=== PATIENT | male | born 1960 | race Caucasian/White ===

== ENCOUNTER 2017-01-05 15:48 | Inpatient (IN) | payer MEDICAID, OTHER ==
[~2017-01-05] VITALS: Ht 182.9 cm; Wt 74.4 kg
[~2017-01-05 15:48] MED LIST: BENZ1TAB10 PO; CLOZ100 PO; DIVA500T52 PO; SERT50TA12 PO
[2017-01-05 17:00] LABS: BASOPHILS % (AUTO) 0.1 % (0.0-2.0); EOSINOPHILS % (AUTO) 0 % (1.0-6.0); HEMOGLOBIN 13.6 g/dL (13.5-17.5); LYMPHOCYTES # (AUTO) 2.5 K/uL (1.0-4.8); LYMPHOCYTES % (AUTO) 42.1 % (22.0-44.0); MEAN CORPUSCULAR HEMOGLOBIN 30.6 pg (26.0-34.0); MEAN CORPUSCULAR HGB CONC 33.2 G/dL (31.0-37.0); MEAN CORPUSCULAR VOLUME 92 fL (80-100); MONOCYTES # (AUTO) 0.4 K/uL (0.1-1.0); MONOCYTES % (AUTO) 7.1 % (2.0-9.0); NEUTROPHILS # (AUTO) 3.1 K/uL (1.8-7.7); NEUTROPHILS % (AUTO) 50.7 % (40.0-70.0); PLATELET COUNT (AUTO) 184 K/uL (150-450); RED BLOOD CELL COUNT(AUTO) 4.45 MIL/uL (4.50-5.90); RED CELL DISTRIBUTION WIDTH 12.6 % (11.5-14.5); WHITE BLOOD COUNT (AUTO) 6.1 K/uL (4.5-11.0)
[2017-01-05] MEDS ORDERED: LORazepam 2 MG/ML VIAL IM ONE (17:00)
[2017-01-05] MEDS ORDERED: HALOPERIDOL LACTATE 5 MG/ML VIAL IM ONE (17:00)
[2017-01-05 17:16] LABS: ANION GAP 7 mmol/L (8-16); CALCIUM, TOTAL 8.9 mg/dL (8.8-10.5); CARBON DIOXIDE 28 mmol/L (22-29); CHLORIDE 108 mmol/L (98-107); CREATININE 0.95 mg/dL (0.60-1.30); GLOMERULAR FILTR. RATE CALC > 60 mL/min (>60); POTASSIUM 3.9 mmol/L (3.5-5.1); SODIUM SERUM 143 mmol/L (136-145); UREA NITROGEN, BLOOD 18 mg/dL (7-18)
[2017-01-05 17:21] LABS: ALANINE AMINOTRANSFERASE 223 U/L (12-78); ALBUMIN 3.5 g/dL (3.4-5.0); ASPARTATE AMINOTRANSFERASE 157 U/L (15-37); BILIRUBIN,TOTAL 0.3 mg/dL (0.1-1.0); TOTAL PROTEIN, SERUM 8.2 g/dL (6.4-8.2)
[2017-01-05] MEDS ORDERED: TUBERCULIN, PURIFIED PROTEIN DERIVATIVE 5 TU/0.1 ML SYG ID ONE (18:00)
[2017-01-05] MEDS ORDERED: MAGNESIUM HYDROXIDE SUSPENSION 30 ML UDCUP PO PRN (18:00)
[2017-01-05] MEDS ORDERED: ZOLPIDEM TARTRATE 10 MG TABLET PO PRN (18:00)
[2017-01-05] MEDS ORDERED: LOPERAMIDE HCL 2 MG CAPSULE PO PRN (18:00)
[2017-01-05] MEDS ORDERED: OLANZapine 5 MG RAPDIS TABLET PO PRN (18:00)
[2017-01-05] MEDS ORDERED: ACETAMINOPHEN 325 MG TABLET PO PRN (18:00)
[2017-01-05] MEDS ORDERED: GuaiFENesin/D-METHORPHAN [SUGAR-FREE] 200-20MG/10 ML SYRUP UDCUP PO PRN (18:00)
[2017-01-05] MEDS ORDERED: PROMETHAZINE HCL 25 MG TABLET PO PRN (18:00)
[2017-01-05] MEDS ORDERED: HydrOXYzine PAMOATE 50 MG CAPSULE PO PRN (18:00)
[2017-01-05] MEDS ORDERED: MAG HYDROX/AL HYDROX/SIMETH ES 30 ML SUSPENSION UDCUP PO PRN (18:00)
[2017-01-05 19:54] VITALS: BP 124/62
[2017-01-05] MEDS ORDERED: INFLUENZA VIRUS VACCINE QVS 2016-17 (3YR+)/PF 60 MCG/0.5 ML SYRINGE IM ONE (20:15)
[2017-01-05] MEDS: THIAMINE HCL 100 MG TABLET PO SCH (20:29)
[2017-01-05] MEDS: CloZAPine 100 MG TABLET PO SCH (20:30)
[2017-01-05] MEDS ORDERED: DIVALPROEX SODIUM 500 MG ER TABLET PO SCH (21:00)
[2017-01-06 00:30] VITALS: BP 111/69
[2017-01-06 08:02] LABS: BASOPHILS # (AUTO) 0.01 K/uL (0.00-0.20); BASOPHILS % (AUTO) 0.2 % (0.0-2.0); EOSINOPHILS % (AUTO) 0.02 % (1.0-6.0); HEMATOCRIT 41.2 % (41-53); HEMOGLOBIN 13.7 g/dL (13.5-17.5); LYMPHOCYTES # (AUTO) 2.6 K/uL (1.0-4.8); LYMPHOCYTES % (AUTO) 46.1 % (22.0-44.0); MEAN CORPUSCULAR HEMOGLOBIN 30.7 pg (26.0-34.0); MEAN CORPUSCULAR HGB CONC 33.3 G/dL (31.0-37.0); MEAN CORPUSCULAR VOLUME 92 fL (80-100); MONOCYTES # (AUTO) 0.3 K/uL (0.1-1.0); MONOCYTES % (AUTO) 5.9 % (2.0-9.0); NEUTROPHILS # (AUTO) 2.7 K/uL (1.8-7.7); NEUTROPHILS % (AUTO) 47.8 % (40.0-70.0); PLATELET COUNT (AUTO) 197 K/uL (150-450); RED BLOOD CELL COUNT(AUTO) 4.47 MIL/uL (4.50-5.90); RED CELL DISTRIBUTION WIDTH 12.3 % (11.5-14.5); WHITE BLOOD COUNT (AUTO) 5.7 K/uL (4.5-11.0)
[2017-01-06 08:09] VITALS: BP 115/74
[2017-01-06 08:21] LABS: HEMOGLOBIN A1C 5.5 % (4.5-6.2)
[2017-01-06 08:27] LABS: ALANINE AMINOTRANSFERASE 226 U/L (12-78); ALBUMIN 3.3 g/dL (3.4-5.0); ANION GAP 9 mmol/L (8-16); ASPARTATE AMINOTRANSFERASE 164 U/L (15-37); BILIRUBIN,TOTAL 0.4 mg/dL (0.1-1.0); CALCIUM, TOTAL 8.7 mg/dL (8.8-10.5); CARBON DIOXIDE 27 mmol/L (22-29); CHLORIDE 105 mmol/L (98-107); CHOL/HDL RATIO 4.8 (4.2-7.3); CREATININE 0.91 mg/dL (0.60-1.30); GLOMERULAR FILTR. RATE CALC > 60 mL/min (>60); POTASSIUM 3.9 mmol/L (3.5-5.1); SODIUM SERUM 141 mmol/L (136-145); TOTAL PROTEIN, SERUM 7.8 g/dL (6.4-8.2); UREA NITROGEN, BLOOD 18 mg/dL (7-18); VALPROIC ACID 28 mcg/mL (50-100)
[2017-01-06] MEDS ORDERED: SERTRALINE HCL 50 MG TABLET PO SCH (09:00)
[2017-01-06] MEDS: THIAMINE HCL 100 MG TABLET PO SCH ×2 (10:05→16:12)
[2017-01-06] MEDS: FOLIC ACID 1 MG TABLET PO SCH (10:05)
[2017-01-06] MEDS: MULTIVITAMINS WITH MINERALS, THERAPEUTIC TABLET PO SCH (10:05)
[2017-01-06] MEDS: CloZAPine 100 MG TABLET PO SCH ×2 (10:05→20:34)
[2017-01-06] MEDS: LORazepam 2 MG TABLET PO PRN (11:09)
[2017-01-06] MEDS: GABAPENTIN 100 MG CAPSULE PO SCH ×3 (13:02→20:35)
[2017-01-06 18:14] VITALS: BP 104/76
[2017-01-06] MEDS: DIVALPROEX SODIUM 500 MG ER TABLET PO SCH (20:34)
[2017-01-06] MEDS ORDERED: IBUPROFEN 400 MG TABLET PO PRN (22:30)
[2017-01-07 00:10] VITALS: BP 104/60
[2017-01-07] MEDS: GABAPENTIN 100 MG CAPSULE PO SCH ×4 (08:59→21:05)
[2017-01-07] MEDS: CloZAPine 100 MG TABLET PO SCH ×2 (08:59→21:11)
[2017-01-07] MEDS: FOLIC ACID 1 MG TABLET PO SCH (08:59)
[2017-01-07] MEDS: SERTRALINE HCL 100 MG TABLET PO SCH (08:59)
[2017-01-07] MEDS: THIAMINE HCL 100 MG TABLET PO SCH ×2 (08:59→16:52)
[2017-01-07] MEDS: MULTIVITAMINS WITH MINERALS, THERAPEUTIC TABLET PO SCH (08:59)
[2017-01-07 11:12] VITALS: BP 134/93
[2017-01-07] MEDS: LORazepam 2 MG TABLET PO PRN (11:19)
[2017-01-07 16:10] VITALS: BP 114/71
[2017-01-07] MEDS: DIVALPROEX SODIUM 500 MG ER TABLET PO SCH (21:11)
[2017-01-08 06:17] VITALS: BP 105/60
[2017-01-08] MEDS: FOLIC ACID 1 MG TABLET PO SCH (09:20)
[2017-01-08] MEDS: THIAMINE HCL 100 MG TABLET PO SCH ×2 (09:20→16:22)
[2017-01-08] MEDS: CloZAPine 100 MG TABLET PO SCH ×2 (09:20→20:57)
[2017-01-08] MEDS: MULTIVITAMINS WITH MINERALS, THERAPEUTIC TABLET PO SCH (09:20)
[2017-01-08] MEDS: SERTRALINE HCL 100 MG TABLET PO SCH (09:20)
[2017-01-08] MEDS: GABAPENTIN 100 MG CAPSULE PO SCH (09:50)
[2017-01-08 11:11] LABS: CLOZAPINE 621 ng/mL (350-650); CLOZAPINE & NORCLOZAPINE 1186 ng/mL; NORCLOZAPINE 565 ng/mL (Not Estab.)
[2017-01-08] MEDS: GABAPENTIN 300 MG CAPSULE PO SCH ×3 (13:21→20:58)
[2017-01-08] MEDS: LORazepam 2 MG TABLET PO PRN (17:33)
[2017-01-08] MEDS: DIVALPROEX SODIUM 500 MG ER TABLET PO SCH (20:58)
[2017-01-09 06:45] VITALS: BP 106/76
[2017-01-09] MEDS: SERTRALINE HCL 100 MG TABLET PO SCH (09:33)
[2017-01-09] MEDS: FOLIC ACID 1 MG TABLET PO SCH (09:33)
[2017-01-09] MEDS: MULTIVITAMINS WITH MINERALS, THERAPEUTIC TABLET PO SCH (09:33)
[2017-01-09] MEDS: GABAPENTIN 300 MG CAPSULE PO SCH ×2 (09:33→13:05)
[2017-01-09] MEDS: CloZAPine 100 MG TABLET PO SCH ×2 (09:33→20:52)
[2017-01-09] MEDS: THIAMINE HCL 100 MG TABLET PO SCH ×2 (09:33→16:24)
[2017-01-09] MEDS: GABAPENTIN 400 MG CAPSULE PO SCH (16:27)
[2017-01-09] MEDS: LORazepam 2 MG TABLET PO PRN (16:28)
[2017-01-09 17:34] VITALS: BP 117/65
[2017-01-09] MEDS: DIVALPROEX SODIUM 500 MG ER TABLET PO SCH (20:52)
[2017-01-10 06:49] VITALS: BP 96/63
[2017-01-10 08:12] VITALS: BP 124/72
[2017-01-10] MEDS: CloZAPine 100 MG TABLET PO SCH ×2 (08:54→20:43)
[2017-01-10] MEDS: THIAMINE HCL 100 MG TABLET PO SCH ×2 (08:54→16:37)
[2017-01-10] MEDS: MULTIVITAMINS WITH MINERALS, THERAPEUTIC TABLET PO SCH (08:54)
[2017-01-10] MEDS: GABAPENTIN 400 MG CAPSULE PO SCH ×3 (08:54→16:37)
[2017-01-10] MEDS: FOLIC ACID 1 MG TABLET PO SCH (08:54)
[2017-01-10] MEDS: SERTRALINE HCL 100 MG TABLET PO SCH (08:55)
[2017-01-10 16:50] VITALS: BP 121/77
[2017-01-10] MEDS: LORazepam 2 MG TABLET PO PRN (16:51)
[2017-01-10] MEDS: DIVALPROEX SODIUM 500 MG ER TABLET PO SCH (20:44)
[2017-01-11] VITALS (9 sets, daily range): BP systolic 108–139; BP diastolic 61–93
[2017-01-11] MEDS: MULTIVITAMINS WITH MINERALS, THERAPEUTIC TABLET PO SCH (09:21)
[2017-01-11] MEDS: GABAPENTIN 400 MG CAPSULE PO SCH ×3 (09:21→16:48)
[2017-01-11] MEDS: FOLIC ACID 1 MG TABLET PO SCH (09:21)
[2017-01-11] MEDS: CloZAPine 100 MG TABLET PO SCH ×2 (09:22→20:51)
[2017-01-11] MEDS: THIAMINE HCL 100 MG TABLET PO SCH ×2 (09:22→16:48)
[2017-01-11] MEDS: SERTRALINE HCL 100 MG TABLET PO SCH (09:22)
[2017-01-11] MEDS: LORazepam 2 MG TABLET PO PRN ×2 (11:32→16:48)
[2017-01-11] MEDS: DIVALPROEX SODIUM 500 MG ER TABLET PO SCH (20:52)
[2017-01-12 00:15] VITALS: BP 139/88
[2017-01-12 01:04] VITALS: BP 131/85
[2017-01-12 01:18] VITALS: BP 131/85
[2017-01-12 02:03] VITALS: BP 128/82
[2017-01-12] MEDS: MULTIVITAMINS WITH MINERALS, THERAPEUTIC TABLET PO SCH (08:39)
[2017-01-12] MEDS: CloZAPine 100 MG TABLET PO SCH ×2 (08:39→20:44)
[2017-01-12] MEDS: THIAMINE HCL 100 MG TABLET PO SCH ×2 (08:39→16:47)
[2017-01-12] MEDS: GABAPENTIN 400 MG CAPSULE PO SCH ×3 (08:39→16:47)
[2017-01-12] MEDS: FOLIC ACID 1 MG TABLET PO SCH (08:39)
[2017-01-12] MEDS: SERTRALINE HCL 100 MG TABLET PO SCH (08:40)
[2017-01-12 10:30] VITALS: BP 120/81
[2017-01-12] MEDS: LORazepam 2 MG TABLET PO PRN ×2 (12:03→16:49)
[2017-01-12 16:20] VITALS: BP 105/85
[2017-01-12] MEDS: DIVALPROEX SODIUM 500 MG ER TABLET PO SCH (20:44)
[2017-01-13 01:14] VITALS: BP 117/73
[2017-01-13 03:03] VITALS: BP 117/73
[2017-01-13] MEDS ORDERED: BENZTROPINE MESYLATE 2 MG TABLET PO SCH (09:00)
[2017-01-13] MEDS: SERTRALINE HCL 100 MG TABLET PO SCH (09:40)
[2017-01-13] MEDS: CloZAPine 100 MG TABLET PO SCH (09:40)
[2017-01-13] MEDS: MULTIVITAMINS WITH MINERALS, THERAPEUTIC TABLET PO SCH (09:40)
[2017-01-13] MEDS: THIAMINE HCL 100 MG TABLET PO SCH (09:40)
[2017-01-13] MEDS: FOLIC ACID 1 MG TABLET PO SCH (09:40)
[2017-01-13] MEDS: GABAPENTIN 400 MG CAPSULE PO SCH ×2 (09:47→13:19)
[2017-01-13] MEDS ORDERED: DIVA500T52 PO (14:11)
[2017-01-13] MEDS ORDERED: BENZ2TAB10 PO ×2 (14:11→14:43)
[2017-01-13] MEDS ORDERED: GABA-533 PO ×2 (14:11→14:43)
[2017-01-13] MEDS ORDERED: SERT100T12 PO (14:11)
[2017-01-13] MEDS ORDERED: CLOZ100 PO ×2 (14:11)
[2017-01-13] MEDS ORDERED: THIA100 PO (14:43)
[2017-01-13] MEDS ORDERED: MULT-729 PO (14:43)
[2017-01-13] MEDS ORDERED: FOLI1 PO (14:43)
[2017-01-14 12:33] LABS: DESMETHYLSERTRALINE LEVEL 42 ng/ml; SERTRALINE 28 ng/ml (30-200)
== END 2017-01-13 15:30 | disposition home or self-care (01) | DRG 750 ==
LOC: EMS 15:50 → B2S 18:13
PROVIDERS: ADMIT Psychiatry & Neurology Psychiatry; ATTEND Psychiatry & Neurology Psychiatry
PROC: GZ51ZZZ Individual Psychotherapy, Behavioral (ICD-10-PCS; principal; 2017-01-05)
DX: F20.0 Paranoid schizophrenia (principal); R45.851 Suicidal ideations; Z91.19 Patient's noncompliance with other medical treatment and regimen; B18.2 Chronic viral hepatitis C; F41.9 Anxiety disorder, unspecified; F19.10 Other psychoactive substance abuse, uncomplicated; F17.210 Nicotine dependence, cigarettes, uncomplicated; Z79.899 Other long term (current) drug therapy; Z71.6 Tobacco abuse counseling; Z71.51 Drug abuse counseling and surveillance of drug abuser; Z28.21 Immunization not carried out because of patient refusal
CPT/HCPCS: 80159; 83036; 84439; 84443; 86592; 93005; 96372; 99285; G0431; G0480; J1630; J2060

== ENCOUNTER 2024-07-02 09:11 | Inpatient (IN) | payer MEDICAID ==
[~2024-07-02] VITALS: Ht 182.9 cm; Wt 69.4 kg
[~2024-07-02 09:11] MED LIST changes: -BENZ1TAB10 PO; +BENZ2TAB84 PO; -CLOZ100 PO; +CLOZ100T12 PO; +DIVA-153 PO; -DIVA500T52 PO; +GABA-1201 PO; +GABA-534 PO; +MULT-729 PO; +OLAN7.5T22 PO; +SERT-158 PO; +SERT-440 PO; -SERT50TA12 PO; +THIAMINE HCL100 MG PO
[2024-07-02] MEDS ORDERED: DIVA-112 PO (09:45)
[2024-07-02] MEDS ORDERED: OLAN15TA36 PO (09:45)
[2024-07-02] MEDS ORDERED: ROSU10TA72 PO (09:45)
[2024-07-02] MEDS ORDERED: VALB80CA PO (09:45)
[2024-07-02] MEDS ORDERED: DIPH25CA53 PO (09:45)
[2024-07-02] MEDS: HALOPERIDOL LACTATE 5 MG/ML VIAL IM ONE (10:38)
[2024-07-02] MEDS: LORazepam 2 MG/ML VIAL IM ONE (10:38)
[2024-07-02 10:46] LABS: BASOPHILS % (AUTO) 0.2 % (0.0-2.0); EOSINOPHILS % (AUTO) 0.1 % (1.0-6.0); HEMATOCRIT 44.8 % (41-53); HEMOGLOBIN 15.1 g/dL (13.5-17.5); LYMPHOCYTES # (AUTO) 0.9 K/uL (1.0-4.8); LYMPHOCYTES % (AUTO) 11.2 % (22.0-44.0); MEAN CORPUSCULAR HEMOGLOBIN 31.8 pg (26.0-34.0); MEAN CORPUSCULAR HGB CONC 33.7 G/dL (31.0-37.0); MEAN CORPUSCULAR VOLUME 94 fL (80-100); MONOCYTES # (AUTO) 0.4 K/uL (0.1-1.0); MONOCYTES % (AUTO) 5.2 % (2.0-9.0); NEUTROPHILS # (AUTO) 6.4 K/uL (1.8-7.7); NEUTROPHILS % (AUTO) 83.3 % (40.0-70.0); PLATELET COUNT (AUTO) 286 K/uL (150-450); RED BLOOD CELL COUNT(AUTO) 4.75 MIL/uL (4.50-5.90); RED CELL DISTRIBUTION WIDTH 12.5 % (11.5-14.5); WHITE BLOOD COUNT (AUTO) 7.7 K/uL (4.5-11.0)
[2024-07-02 10:52] LABS: COVID AG,FIA SOURCE NASAL SWAB
[2024-07-02 11:12] LABS: ANION GAP 12 mmol/L (8-16); CALCIUM, TOTAL 9.3 mg/dL (8.8-10.5); CARBON DIOXIDE 26 mmol/L (22-29); CHLORIDE 99 mmol/L (98-107); CREATININE 1.03 mg/dL (0.60-1.30); GLOMERULAR FILTR. RATE CALC > 60 mL/min (>60); GLUCOSE,RANDOM 101 mg/dL (70-110); POTASSIUM 3.9 mmol/L (3.5-5.1); SODIUM SERUM 137 mmol/L (136-145); UREA NITROGEN, BLOOD 12 mg/dL (7-18)
[2024-07-02 11:12] LABS: SARS-COV2 (COVID) ANTIGEN,FIA Negative (Negative)
[2024-07-02 11:17] LABS: PH,URINE DRUG SCREEN 6.5 (5.0-8.0)
[2024-07-02 11:41] LABS: ALCOHOL, URINE DRUG SCREEN NEGATIVE (NEGATIVE); AMPHET/METH SCREEN,URINE NEGATIVE (NEGATIVE); BARBITURATE SCREEN, URINE NEGATIVE (NEGATIVE); BENZODIAZEPINES SCREEN,URINE NEGATIVE (NEGATIVE); CANNABINOID SCREEN,URINE NEGATIVE (NEGATIVE); COCAINE SCREEN,URINE NEGATIVE (NEGATIVE); METHADONE SCREEN, URINE NEGATIVE (NEGATIVE); OPIATE SCREEN,URINE NEGATIVE (NEGATIVE); PHENCYCLIDINE SCREEN,URINE NEGATIVE (NEGATIVE)
[2024-07-02 12:09] LABS: ALCOHOL, BLOOD (SERUM) < 3 mg/dL (0-10)
[2024-07-02] MEDS: HALOPERIDOL 5 MG TABLET PO PRN (16:22)
[2024-07-02] MEDS: LORazepam 2 MG TABLET PO PRN (16:22)
[2024-07-02] MEDS: ZOLPIDEM TARTRATE 10 MG TABLET PO PRN (22:58)
[2024-07-03] MEDS ORDERED: PNEUMOCOCCAL VACCINE POLYVALENT 0.5 ML SYRINGE [PPSV23] IM. ONE (04:15)
[2024-07-03] MEDS ORDERED: CloNIDine HCL 0.1 MG TABLET PO PRN (07:00)
[2024-07-03] MEDS ORDERED: MAGNESIUM HYDROXIDE SUSPENSION 30 ML UDCUP PO PRN (07:00)
[2024-07-03] MEDS ORDERED: PETROLATUM,WHITE 28 GM JELLY TP PRN (07:00)
[2024-07-03] MEDS ORDERED: DOCUSATE SODIUM 100 MG CAPSULE PO PRN (07:00)
[2024-07-03] MEDS ORDERED: IBUPROFEN 600 MG TABLET PO PRN (07:00)
[2024-07-03] MEDS ORDERED: ONDANSETRON HCL 4 MG TABLET PO PRN (07:00)
[2024-07-03] MEDS ORDERED: ACETAMINOPHEN 325 MG TABLET PO PRN (07:00)
[2024-07-03] MEDS ORDERED: ALBUTEROL SULFATE HFA 90 MCG/PUFF 8 GM INHALER IH PRN (07:00)
[2024-07-03] MEDS ORDERED: LOPERAMIDE HCL 2 MG CAPSULE PO PRN (07:00)
[2024-07-03] MEDS ORDERED: OMEPRAZOLE 20 MG CAPSULE PO PRN (07:00)
[2024-07-03] MEDS ORDERED: BACITRACIN 28 GM OINTMENT TP PRN (07:00)
[2024-07-03] MEDS ORDERED: BENZOCAINE/MENTHOL LOZENGE PO PRN (07:00)
[2024-07-03] MEDS ORDERED: MAG HYDROX/ALUMINUM HYD/SIMETH ES 30 ML SUSPENSION UDCUP PO PRN (07:00)
[2024-07-03 09:18] VITALS: BP 112/70; PULSE 75; RESP 17; TEMP 98.5; O2SAT 99
[2024-07-03 15:28] VITALS: BP 104/72
[2024-07-03] MEDS: DIVALPROEX SODIUM 500 MG DR TABLET PO SCH (16:19)
[2024-07-03] MEDS: OLANZapine 10 MG TABLET PO SCH (20:35)
[2024-07-03] MEDS: ROSUVASTATIN CALCIUM 10 MG TABLET PO SCH (20:36)
[2024-07-03 21:39] VITALS: BP 117/54; PULSE 76; RESP 18; TEMP 97.3; O2SAT 96
[2024-07-04 08:40] VITALS: BP 118/71; PULSE 72; RESP 18; TEMP 98.6; O2SAT 97
[2024-07-04 20:29] VITALS: BP 119/75; PULSE 83; RESP 18; TEMP 97.2; O2SAT 99
[2024-07-05 09:21] VITALS: BP 116/64; PULSE 80; RESP 18; TEMP 97.9; O2SAT 100
[2024-07-05 20:30] VITALS: BP 121/90; PULSE 76; RESP 16; TEMP 96.7; O2SAT 100
[2024-07-06 08:14] VITALS: BP 111/74; PULSE 76; RESP 16; TEMP 97.5; O2SAT 100
[2024-07-07 08:54] VITALS: BP 119/71; PULSE 76; RESP 18; TEMP 98.1; O2SAT 100
[2024-07-07 20:16] VITALS: BP 113/67; PULSE 77; RESP 16; TEMP 97.7; O2SAT 100
[2024-07-08 08:22] VITALS: BP 118/69; PULSE 79; RESP 16; TEMP 97.8; O2SAT 99
[2024-07-08] MEDS ORDERED: OLAN10TA74 PO (14:17)
== END 2024-07-08 16:03 | disposition home or self-care (01) | DRG 750 ==
LOC: EMS 09:13 → B2S 21:10
PROVIDERS: ADMIT Psychiatry & Neurology Psychiatry; ATTEND Psychiatry & Neurology Psychiatry
DX: F20.9 Schizophrenia, unspecified (principal); R45.851 Suicidal ideations; B18.2 Chronic viral hepatitis C; E66.9 Obesity, unspecified; E78.5 Hyperlipidemia, unspecified; F10.10 Alcohol abuse, uncomplicated; B19.20 Unspecified viral hepatitis C without hepatic coma; K59.00 Constipation, unspecified; F32.9 Major depressive disorder, single episode, unspecified; F41.9 Anxiety disorder, unspecified; G47.00 Insomnia, unspecified; Z68.20 Body mass index [BMI] 20.0-20.9, adult
CPT/HCPCS: 80048; 80164; 80307; 85025; G0480; J1630; J2060

== ENCOUNTER 2024-10-27 12:30 | Inpatient (IN) | payer MEDICAID, OTHER ==
[~2024-10-27] VITALS: Ht 182.9 cm; Wt 64.9 kg
[~2024-10-27 12:30] MED LIST changes: -BENZ2TAB84 PO; -CLOZ100T12 PO; -GABA-1201 PO; -GABA-534 PO; +MELA5TAB40 PO; -MULT-729 PO; +NALT50TA33 PO; +OLAN5TAB94 PO; -OLAN7.5T22 PO; +OMEG100033 PO; -SERT-158 PO; -SERT-440 PO; -THIAMINE HCL100 MG PO
[2024-10-27 14:36] LABS: BASOPHILS % (AUTO) 0.4 % (0.0-2.0); HEMATOCRIT 40.4 % (41-53); HEMOGLOBIN 13.7 g/dL (13.5-17.5); LYMPHOCYTES # (AUTO) 1.5 K/uL (1.0-4.8); LYMPHOCYTES % (AUTO) 29.8 % (22.0-44.0); MEAN CORPUSCULAR HEMOGLOBIN 32.4 pg (26.0-34.0); MEAN CORPUSCULAR HGB CONC 33.8 G/dL (31.0-37.0); MEAN CORPUSCULAR VOLUME 96 fL (80-100); MONOCYTES # (AUTO) 0.4 K/uL (0.1-1.0); MONOCYTES % (AUTO) 7.6 % (2.0-9.0); NEUTROPHILS % (AUTO) 61.2 % (40.0-70.0); PLATELET COUNT (AUTO) 247 K/uL (150-450); RED BLOOD CELL COUNT(AUTO) 4.22 MIL/uL (4.50-5.90); RED CELL DISTRIBUTION WIDTH 12.3 % (11.5-14.5)
[2024-10-27 14:42] LABS: COVID AG,FIA SOURCE NASAL SWAB
[2024-10-27 14:43] LABS: ANION GAP 3 mmol/L (8-16); CARBON DIOXIDE 33 mmol/L (22-29); CHLORIDE 102 mmol/L (98-107); CREATININE 0.93 mg/dL (0.60-1.30); GLOMERULAR FILTR. RATE CALC > 60 mL/min (>60); GLUCOSE,RANDOM 104 mg/dL (70-110); SODIUM SERUM 138 mmol/L (136-145); UREA NITROGEN, BLOOD 9 mg/dL (7-18)
[2024-10-27 14:49] LABS: ALCOHOL, BLOOD (SERUM) < 3 mg/dL (0-10)
[2024-10-27 14:58] LABS: SARS-COV2 (COVID) ANTIGEN,FIA Negative (Negative)
[2024-10-27] MEDS: LORazepam 2 MG/ML VIAL IM ONE (16:09)
[2024-10-27] MEDS: HALOPERIDOL LACTATE 5 MG/ML VIAL IM ONE (16:09)
[2024-10-27 16:29] LABS: PH,URINE DRUG SCREEN 6.5 (5.0-8.0)
[2024-10-27 16:39] LABS: ALCOHOL, URINE DRUG SCREEN NEGATIVE (NEGATIVE); AMPHET/METH SCREEN,URINE NEGATIVE (NEGATIVE); BARBITURATE SCREEN, URINE NEGATIVE (NEGATIVE); BENZODIAZEPINES SCREEN,URINE NEGATIVE (NEGATIVE); CANNABINOID SCREEN,URINE POSITIVE (NEGATIVE); COCAINE SCREEN,URINE NEGATIVE (NEGATIVE); METHADONE SCREEN, URINE NEGATIVE (NEGATIVE); OPIATE SCREEN,URINE NEGATIVE (NEGATIVE); PHENCYCLIDINE SCREEN,URINE NEGATIVE (NEGATIVE)
[2024-10-27] MEDS: IBUPROFEN 400 MG TABLET PO ONE (18:04)
[2024-10-27] MEDS: ZOLPIDEM TARTRATE 10 MG TABLET PO PRN (20:19)
[2024-10-28] MEDS: LORazepam 2 MG TABLET PO PRN (02:28)
[2024-10-28] MEDS: ACETAMINOPHEN 500 MG TABLET PO ONE (02:28)
[2024-10-28] MEDS: HALOPERIDOL 5 MG TABLET PO PRN (02:30)
[2024-10-28 07:56] VITALS: O2SAT 99
[2024-10-28 11:22] VITALS: BP 120/87; PULSE 71; RESP 18; TEMP 97.5; O2SAT 100
[2024-10-28] MEDS: DIVALPROEX SODIUM 500 MG ER TABLET PO SCH (14:00)
[2024-10-28] MEDS: OLANZapine 5 MG RAPDIS TABLET PO SCH (14:00)
[2024-10-28] MEDS ORDERED: ROSU10TA72 PO (14:59)
[2024-10-28] MEDS ORDERED: OLAN20TA20 PO (14:59)
[2024-10-28] MEDS ORDERED: VALB80CA PO (14:59)
[2024-10-28] MEDS ORDERED: INFLUENZA VIRUS VACCINE TVS (6MO+) 2024-25/PF 45 MCG/0.5 ML SYRINGE IM. ONE (15:15)
[2024-10-28 21:51] VITALS: BP 101/55; PULSE 54; RESP 18; TEMP 97.8; O2SAT 100
[2024-10-29 08:00] VITALS: BP 100/65; PULSE 63; TEMP 98; O2SAT 98
[2024-10-29 20:12] VITALS: BP 129/76; PULSE 82; RESP 18; TEMP 98.9; O2SAT 100
[2024-10-30 08:51] VITALS: RESP 16
[2024-10-30 20:22] VITALS: RESP 18; TEMP 98
[2024-10-31 08:50] VITALS: BP 115/76; PULSE 90; RESP 18; TEMP 98.1; O2SAT 96
[2024-10-31 22:08] VITALS: BP 100/60; PULSE 78; RESP 18; TEMP 98.3; O2SAT 95
[2024-11-01 09:36] VITALS: RESP 18
[2024-11-02 00:04] VITALS: BP 91/55; PULSE 63; RESP 18; TEMP 98; O2SAT 99
[2024-11-02 09:05] VITALS: RESP 17; TEMP 97
[2024-11-02] MEDS ORDERED: DIVA-153 PO (09:58)
[2024-11-02] MEDS ORDERED: OLAN5TAB94 PO (09:58)
== END 2024-11-02 23:44 | disposition home or self-care (01) | DRG 750 ==
LOC: EMS 12:39 → 3EI 10-28 07:10
PROVIDERS: ADMIT Psychiatry & Neurology Psychiatry; ATTEND Psychiatry & Neurology Psychiatry
PROC: GZHZZZZ Group Psychotherapy (ICD-10-PCS; principal; 2024-10-28)
PROC: GZ52ZZZ Individual Psychotherapy, Cognitive (ICD-10-PCS; 2024-10-28)
DX: F25.1 Schizoaffective disorder, depressive type (principal); E44.0 Moderate protein-calorie malnutrition; R45.851 Suicidal ideations; Z20.822 Contact with and (suspected) exposure to COVID-19; E78.5 Hyperlipidemia, unspecified; G47.00 Insomnia, unspecified; F12.10 Cannabis abuse, uncomplicated; Z79.899 Other long term (current) drug therapy; F41.9 Anxiety disorder, unspecified; Z68.1 Body mass index [BMI] 19.9 or less, adult
CPT/HCPCS: 80048; 80307; 85025; 87081; 87481; 99285; G0480; J1630; J2060

== ENCOUNTER 2025-04-18 15:29 | Emergency (ER) | payer MEDICAID, OTHER ==
[~2025-04-18] VITALS: Ht 182.9 cm; Wt 66.8 kg
[~2025-04-18 15:29] MED LIST changes: +FLUO-418 PO; -MELA5TAB40 PO; -NALT50TA33 PO; -OMEG100033 PO; +VALB80CA PO
[2025-04-18 15:39] VITALS: TEMP 97.8
[2025-04-18] MEDS ORDERED: FLUO-418 PO (15:48)
[2025-04-18] MEDS ORDERED: OLAN20TA20 PO (15:48)
[2025-04-18] MEDS: LORazepam 1 MG TABLET PO ONE (16:07)
[2025-04-18] MEDS: BENZTROPINE MESYLATE 2 MG TABLET PO ONE (16:46)
[2025-04-18] MEDS ORDERED: BENZ-247 PO (17:47)
[2025-04-18 18:07] VITALS: BP 124/73; PULSE 63; RESP 18; O2SAT 99
== END 2025-04-18 18:19 | disposition home or self-care (01) ==
LOC: EMS 15:29
DX: G24.9 Dystonia, unspecified (principal); F20.9 Schizophrenia, unspecified; Z79.899 Other long term (current) drug therapy
CPT/HCPCS: 99283

== ENCOUNTER 2025-04-25 11:04 | Emergency (ER) | payer OTHER ==
[~2025-04-25] VITALS: Ht 182.9 cm; Wt 68.0 kg
[~2025-04-25 11:04] MED LIST changes: +BENZ-247 PO; -DIVA-153 PO; +OLAN20TA20 PO; -OLAN5TAB94 PO
[2025-04-25 11:15] VITALS: BP 152/90; PULSE 97; RESP 18; TEMP 98; O2SAT 97
[2025-04-25] MEDS: BENZTROPINE MESYLATE 2 MG TABLET PO ONE (11:33)
== END 2025-04-25 13:04 | disposition home or self-care (01) ==
LOC: EMS 13:01
DX: G24.01 Drug induced subacute dyskinesia (principal); F20.9 Schizophrenia, unspecified; Z79.899 Other long term (current) drug therapy
CPT/HCPCS: 99283